=== PATIENT | female | born 1985 | race Caucasian/White ===

== ENCOUNTER 2021-03-28 14:58 | Emergency (ER) | payer MEDICAID ==
[~2021-03-28] VITALS: Ht 157.5 cm; Wt 77.4 kg
[2021-03-28 15:54] LABS: BASOPHILS % (AUTO) 0.4 % (0-1); EOSINOPHILS % (AUTO) 0.6 % (0-6); HEMATOCRIT 35.8 % (35.0-45.0); LYMPHOCYTES # (AUTO) 1.9 X10'3 (1.1-4.8); LYMPHOCYTES % (AUTO) 25.8 % (21-51); MEAN CORPUSCULAR HEMOGLOBIN 28.4 PG (27.0-31.0); MEAN CORPUSCULAR HGB CONC 33.5 g/dL (33.0-36.5); MEAN CORPUSCULAR VOLUME 84.6 FL (78-98); MEAN PLATELET VOLUME 7.8 FL (7.4-10.4); MONOCYTES # (AUTO) 0.6 X10'3 (0-0.9); MONOCYTES % (AUTO) 8.3 % (2-12); NEUTROPHILS # (AUTO) 4.9 X10'3 (1.8-7.7); NEUTROPHILS % (AUTO) 64.9 % (42-75); PLATELET COUNT 394 X10'3 (140-440); RED BLOOD COUNT 4.23 X10'6 (4.20-5.60); RED CELL DISTRIBUTION WIDTH 17.1 % (11.5-14.5); WHITE BLOOD COUNT 7.6 X10'3 (4.5-11.0)
[2021-03-28 16:10] LABS: ALANINE AMINOTRANSFERASE 23 U/L (12-78); ALBUMIN 4.2 G/DL (3.4-5.0); ALBUMIN/GLOBULIN RATIO 1.2 (1.1-1.5); ALKALINE PHOSPHATASE 59 IU/L (46-116); ANION GAP 11 (8-16); ASPARTATE AMINO TRANSFERASE 11 U/L (10-37); BILIRUBIN,TOTAL 0.7 MG/DL (0.1-1.0); BLOOD UREA NITROGEN 12 MG/DL (7-18); BUN/CREATININE RATIO 13.8 (6.6-38.0); CALCIUM 8.9 MG/DL (8.5-10.1); CHLORIDE 106 MMOL/L (99-107); CREATININE 0.87 MG/DL (0.40-0.90); GLUCOSE 96 MG/DL (70-104); POTASSIUM 3.5 MMOL/L (3.5-5.1); SODIUM 141 MMOL/L (135-145); TOTAL CARBON DIOXIDE 23.9 MMOL/L (24-32); TOTAL PROTEIN 7.6 G/DL (6.4-8.2); eGFR 75 ML/MIN
[2021-03-28 16:19] LABS: ETHANOL < 0.010 GM/DL (0.0-0.010)
--- NOTE | 2021-03-28 20:00 | NUR ---
Pt denies SI. Pt explains she feels very tired for the past weeks. Denies hallucination. Per pt's father, they are taking care of pt's children and she is going thru a divorce. Pt drove to [place] to meet her ex. ran out of gas and was "out" per father. Pt was hospitalized at [facility] in [place] for 3 days due to stress psychosis.
[2021-03-28 20:33] LABS: CLARITY,URINE SLIGHTLY CLOUDY (Clear); COLOR,URINE YELLOW (Yellow); GLUCOSE, URINE NEGATIVE (Neg); KETONES,URINE 40 mg/dl (Neg); LEUKOCYTE ESTERASE ,URINE SMALL (Neg); NITRITES, URINE NEGATIVE (Neg); OCCULT BLOOD,URINE NEGATIVE (Neg); PROTEIN,URINE NEGATIVE (Neg); URINE HCG NEGATIVE (NEG); UROBILINOGEN,URINE 0.2 E.U/dL (0.2-1.0)
[2021-03-28 20:40] LABS: RBC,URINE NONE SEEN /HPF (0-2); UA COLLECTION TYPE CLN CATCH MIDSTREAM
[2021-03-28 20:41] LABS: BACTERIA,URINE 1+ /HPF (Neg); MUCUS STRANDS MANY /LPF (Neg); SQUAMOUS EPITHELIAL CELL,UR MANY /LPF (FEW)
[2021-03-28 20:42] LABS: URINE AMPHETAMINE SCREEN NEGATIVE (Neg); URINE BARBITUATE SCREEN NEGATIVE (Neg); URINE BENZODIAZEPINES SCREEN NEGATIVE (Neg); URINE CANNABINOID SCREEN POSITIVE (Neg); URINE COCAINE SCREEN NEGATIVE (Neg); URINE METHADONE SCREEN NEGATIVE (Neg); URINE OPIATE SCREEN NEGATIVE (Neg); URINE PHENCYCLIDINE SCREEN NEGATIVE (Neg)
[2021-03-28] MEDS ORDERED: RISP1TAB98 PO (20:47)
[2021-03-28] MEDS ORDERED: LORA-269 PO (20:47)
--- NOTE | 2021-03-28 23:17 | NUR ---
pt sleeping, breathing even and easy. Father left home. Pt in direct line of sight. Continue monitoring
--- NOTE | 2021-03-29 06:35 | NUR ---
pt sleeping in bed quietly .RR even ,no sign of distress noted .will cont to monitor.
--- NOTE | 2021-03-29 07:34 | NUR ---
pt resting quietly in bed with eye open ,no signof distress noted. will cont to monitor.
--- NOTE | 2021-03-29 08:12 | NUR ---
PACKET FAED TO [facility]
--- NOTE | 2021-03-29 08:20 | NUR ---
DANNI FATHER [phone] CALLED TO SEE HOW PT DOING. PT SLEEPING AT THIS TIME
--- NOTE | 2021-03-29 08:49 | NUR ---
FOOD TRAY GIVEN TO THE PT BY MALLORY BANKS .WILL CONT TO MONITOR.
--- NOTE | 2021-03-29 11:00 | NUR ---
PT SLEEPING IN BED QUIETLY .RR EVEN AND NONLABAORED ,WILL CONT TO MONITOR.
--- NOTE | 2021-03-29 11:23 | NUR ---
[facility] EVAL AT BEDSIDE .
--- NOTE | 2021-03-29 12:52 | NUR ---
pt is on 5150 hold rgt now .as per [facility] eval.
--- NOTE | 2021-03-29 13:55 | NUR ---
[facility] bedside.
--- NOTE | 2021-03-29 14:38 | NUR ---
pt mother at [facility], spoke to mother concerned about pt condition ,notified the poc all the ques answered.
--- NOTE | 2021-03-29 16:21 | NUR ---
PT SITTING UP IN BED ,MOTHER AT BEDSIDE WILL CONT MONITOR.
--- NOTE | 2021-03-29 18:37 | NUR ---
PT SITTING UP IN BED READING. PT MOTHER AT BEDSIDE. PT SHOWS NO S/S OF ACUTE DISTRESS AT THIS TIME.
--- NOTE | 2021-03-29 19:46 | NUR ---
PT APPEARS TO BE SLEEPING IN SUPINE POSITION. PT SHOWS NO S/S OF ACUTE DISTRESS.
--- NOTE | 2021-03-29 20:46 | NUR ---
PT MOVED TO BED 23. ALL PERSONAL BELONGINGS PLACED IN BELONGINGS BAG AND LABELED.
--- NOTE | 2021-03-29 21:01 | NUR ---
The patient was moved to bed 23. She appears calm and sleepy
--- NOTE | 2021-03-29 22:47 | NUR ---
Covid results faxed to [facility]
--- NOTE | 2021-03-29 23:51 | NUR ---
The patient appears to be sleeping since being moved to bed 23.
--- NOTE | 2021-03-30 01:43 | NUR ---
The patient appears to be sleeping
[2021-03-30] MEDS ORDERED: LORazepam 1 MG tablet PO PRN (02:00)
--- NOTE | 2021-03-30 03:28 | NUR ---
The patient appears to be sleeping
--- NOTE | 2021-03-30 05:00 | NUR ---
The patient appears to be sleeping
[2021-03-30 06:06] VITALS: BP 115/70
--- NOTE | 2021-03-30 07:41 | NUR ---
Received call from [facility] office informing pt has been accepted at [facility] by MD Alarcon.
[2021-03-30] MEDS ORDERED: risperiDONE 0.5mg tablet PO SCH (08:00)
--- NOTE | 2021-03-30 08:05 | NUR ---
Pt given clean scrubs and wash supplies with bath basin, pt in restroom cleaning up and changing.
--- NOTE | 2021-03-30 09:10 | NUR ---
[employer] for transport to arrive around 0945am per [facility] office.
== END 2021-03-30 10:24 ==
LOC: ER 14:59
DX: F32.9 Major depressive disorder, single episode, unspecified (principal); Z20.822 Contact with and (suspected) exposure to COVID-19; F12.90 Cannabis use, unspecified, uncomplicated; Z79.899 Other long term (current) drug therapy
CPT/HCPCS: 36415; 80053; 80305; 80320; 81001; 81025; 84443; 85025; 87635; 99285; C9803

== ENCOUNTER 2022-10-07 16:45 | Emergency (ER) | payer MEDICAID ==
[~2022-10-07] VITALS: Ht 157.5 cm; Wt 70.5 kg
[~2022-10-07 16:45] MED LIST: OLAN2.5T28 PO; OLAN5TAB29 PO
[2022-10-07 17:06] VITALS: BP 125/80
[2022-10-07 17:36] LABS: BASOPHILS % (AUTO) 0.4 % (0-1); EOSINOPHILS # (AUTO) 0.1 X10'3 (0-0.9); EOSINOPHILS % (AUTO) 0.5 % (0-6); HEMATOCRIT 41.3 % (35.0-45.0); HEMOGLOBIN 14.1 g/dl (12.0-16.0); LYMPHOCYTES # (AUTO) 1.6 X10'3 (1.1-4.8); LYMPHOCYTES % (AUTO) 15.7 % (21-51); MEAN CORPUSCULAR HEMOGLOBIN 29.6 PG (27.0-31.0); MEAN CORPUSCULAR HGB CONC 34.2 g/dL (33.0-36.5); MEAN CORPUSCULAR VOLUME 86.5 FL (78-98); MEAN PLATELET VOLUME 8.9 FL (7.4-10.4); MONOCYTES # (AUTO) 0.9 X10'3 (0-0.9); MONOCYTES % (AUTO) 8.7 % (2-12); NEUTROPHILS # (AUTO) 7.6 X10'3 (1.8-7.7); NEUTROPHILS % (AUTO) 74.7 % (42-75); PLATELET COUNT 323 X10'3 (140-440); RED BLOOD COUNT 4.77 X10'6 (4.20-5.60); WHITE BLOOD COUNT 10.1 X10'3 (4.5-11.0)
[2022-10-07 17:53] LABS: ALANINE AMINOTRANSFERASE 30 U/L (12-78); ALBUMIN 4.7 G/DL (3.4-5.0); ALBUMIN/GLOBULIN RATIO 1.4 (1.1-1.5); ALKALINE PHOSPHATASE 65 IU/L (46-116); ANION GAP 15 (8-16); ASPARTATE AMINO TRANSFERASE 14 U/L (10-37); BILIRUBIN,TOTAL 0.7 MG/DL (0.1-1.0); BLOOD UREA NITROGEN 10 MG/DL (7-18); BUN/CREATININE RATIO 8.7 (6.6-38.0); CALCIUM 9.5 MG/DL (8.5-10.1); CHLORIDE 100 MMOL/L (99-107); CREATININE 1.15 MG/DL (0.40-0.90); GLUCOSE 130 MG/DL (70-104); LIPASE 100 U/L (73-393); SODIUM 139 MMOL/L (135-145); TOTAL CARBON DIOXIDE 24.2 MMOL/L (24-32); TOTAL PROTEIN 8.1 G/DL (6.4-8.2); eGFR 53 ML/MIN
[2022-10-07 17:56] LABS: POTASSIUM 2.9 MMOL/L (3.5-5.1)
[2022-10-07] MEDS ORDERED: potassium Cl 20 mEq SR tablet PO ONE (18:05)
[2022-10-07] MEDS ORDERED: magnesium Cl slow-release 64mg tablet PO ONE (18:05)
[2022-10-07] MEDS ORDERED: potassium CL 10mEq/100ml bag 100 ML IV SCH (18:25)
[2022-10-07] MEDS ORDERED: magnesium 2GM in 50ml NS 50 ML IV ONE (18:25)
--- NOTE | 2022-10-07 18:25 | NUR ---
Urine specimen cup and wipes given to patient. Pt was instructed on how to collect urines sample
[2022-10-07] MEDS ORDERED: POTASSIUM BICARB 20meq eff tab 20 MEQ TABLET.EFF PO ONE (19:50)
[2022-10-07 20:42] LABS: ALBUMIN 4.2 G/DL (3.4-5.0); BLOOD UREA NITROGEN 10 MG/DL (7-18); BUN/CREATININE RATIO 13.2 (6.6-38.0); CALCIUM 9.4 MG/DL (8.5-10.1); CREATININE 0.76 MG/DL (0.40-0.90); GLUCOSE 90 MG/DL (70-104); TOTAL CARBON DIOXIDE 24.3 MMOL/L (24-32); eGFR 86 ML/MIN
[2022-10-07 20:56] LABS: ANION GAP 12 (8-16); CHLORIDE 102 MMOL/L (99-107); POTASSIUM 3.7 MMOL/L (3.5-5.1); SODIUM 138 MMOL/L (135-145)
[2022-10-07 21:54] LABS: URINE HCG NEGATIVE (NEG)
[2022-10-07 22:15] LABS: CLARITY,URINE SLIGHTLY CLOUDY (Clear); COLOR,URINE YELLOW (Yellow); GLUCOSE, URINE NEGATIVE (Neg); KETONES,URINE >=80 mg/dl (Neg); LEUKOCYTE ESTERASE ,URINE NEGATIVE (Neg); OCCULT BLOOD,URINE NEGATIVE (Neg); PH,URINE 6.5 (4.8-8.0); PROTEIN,URINE NEGATIVE (Neg); UROBILINOGEN,URINE 0.2 E.U/dL (0.2-1.0)
[2022-10-07 22:36] LABS: UA COLLECTION TYPE CLN CATCH MIDSTREAM
[2022-10-07 22:38] LABS: NITRITES, URINE NEGATIVE (Neg)
[2022-10-07 22:43] LABS: BACTERIA,URINE 3+ /HPF (Neg); MUCUS STRANDS MANY /LPF (Neg); SQUAMOUS EPITHELIAL CELL,UR MANY /LPF (FEW)
[2022-10-07 22:45] LABS: CAL OXALATE CRYSTALS 1+ /HPF (NEGATIVE)
[2022-10-07 22:46] LABS: RBC,URINE NONE SEEN /HPF (0-2)
== END 2022-10-07 21:48 | disposition home or self-care (01) ==
LOC: ER 16:45
DX: E87.6 Hypokalemia (principal); R10.31 Right lower quadrant pain; F32.9 Major depressive disorder, single episode, unspecified; F12.90 Cannabis use, unspecified, uncomplicated; Z86.14 Personal history of Methicillin resistant Staphylococcus aureus infection; Z79.899 Other long term (current) drug therapy
CPT/HCPCS: 36415; 76856; 80048; 80053; 81001; 81025; 83690; 84484; 85025; 93976; 99284

== ENCOUNTER 2023-01-22 16:41 | Emergency (ER) | payer MEDICAID | END 2023-01-22 18:42 | disposition left against medical advice (07) | LOC: ER 16:41 | DX: Z00.8 Encounter for other general examination (principal); Z53.21 Procedure and treatment not carried out due to patient leaving prior to being seen by health care provider ==